=== PATIENT | male | born 1965 | race Caucasian/White ===

== ENCOUNTER 2020-04-04 07:00 | Day surgery (SDC) | payer OTHER ==
[2020-04-01 10:25] VITALS: BMI 36.1
[2020-04-04 07:40] VITALS: BP 114/87; TEMP 96.6
--- NOTE | 2020-04-04 10:06 | CT ---
CT lumbar spine with contrast: (CT lumbar myelogram) 04/04/2020 HISTORY: 54-year-old male with postlaminectomy syndrome, low back pain. COMPARISON: None FINDINGS: Transitional level at lumbosacral junction. For the purposes of this report, the first nonrib-bearing lumbar-type vertebra will be designated as L1. The transitional level at the lumbosacral junction will be considered to be L5 with bilaterally symmetrically dysplastic, large transverse processes everett t are completely fused with the bilateral sacral alae. Vertebral body heights are maintained. No scoliosis. There are bilateral pedicle screws with interlocking rods at L2, L3, L4, and L5. No eviden ce of loosening or malpositioning of hardware. Midline laminectomy defect contiguously from L2 through L4-5. Ankylosis of bilateral facet joints at L2-3, L3-4, and L5-S1, but not L4-5. L5-S1 facet joints are hypoplastic. L5-S1 disc space is hypoplastic. Moderate disc space narrowing at L4-5 with endplate irregularity. The rest of the disc spaces are maintained. Conus medullaris terminates a t T12-L1. T11-12: Mild right neural foraminal stenosis. Mild to moderate left neural foraminal stenosis. No cameron tral stenosis. T12-L1 small central and bilateral paracentral disc-osteophyte complex indents the ventral surface of thecal sac. Calcified/ossified ligamentum flavum thickening and mild degenerative facet hypertrophy indent bilateral dorsal aspect of thecal sac. Mild central spinal canal stenosis. No sign ificant right neural foraminal stenosis. Mild left neural foraminal stenosis. L1-2: Bony hypertrophy of right superior articular facet of L2 indents dorsal aspect of thecal sac. B kimberley hypertrophy of inferior articular facet of L1 indents the right lateral posterior aspect of thecal sac. There is probably an old left hemilaminotomy defect. Mild central spinal canal stenosis. No high-grade neural foraminal stenosis. L2-3: Wide midline decompressive laminectomy defect. Generous caliber of thecal sac in AP dimension. Moderate right neural foraminal stenosis. Mild to moderate left neural foraminal stenosis. L3-4: Severe bilateral facet DJD results in grade 1 anterolisthesis of L3 on L4. However, bilateral f acet joints are ankylosed. Midline laminectomy defect. Generous caliber of thecal sac. Moderate bilateral neural foraminal stenosis. L4-5: Retrolisthesis of L4 on L5. Focal central and bilateral paracentral disc-osteophyte complex ind ents the ventral aspect of thecal sac. Wide midline laminectomy defect. Mild central spinal canal stenosis. At least moderate bilateral neural foraminal stenosis. L5-S1: No central or significant neural foraminal stenosis. IMPRESSION: 1.) Lumbosacral transitional vertebra type IIIB. 2) bilateral pedicle screws L2 through L5, and decompressive midline laminectomy from L2 through L5-S 1. 3) no high-grade central spinal canal stenosis at any level. 4) the L2-3, L3-4, and L5-S1 facet joints are ankylosed, but the L4-5 facet joints is not. 5) bilateral high-grade facet osteoarthrosis and moderate degenerative disc disease at L4-5
--- NOTE | 2020-04-04 13:25 | RAD ---
MYELOGRAM LUMBAR: DATE: 04/04/2020 HISTORY: 54-year-old male with low back pain. Postlaminectomy syndrome. TECHNIQUE: Signed informed consent obtained. Patient placed prone on fluoroscopy table. Skin of lower back prepa red and draped in usual sterile fashion. 25-gauge needle used to apply buffered lidocaine superficially and deeply. Level selected:L2-3. Approach:midline. 22-gauge spinal needle advanced into spinal canal under brief, intermittent fluoroscopy. Upon return of clear CSF, 10 mL Isovue [id number] media was injected into the intrathecal space. Spinal needle was removed. Patient tolerated procedure well. No complications. Total fluoroscopy time:0.6 minutes. Dose area product:152.2 uGy*m^2. FINDINGS: Transitional level at lumbosacral junction. Bilateral pedicle screws and midline laminectomy defects at multiple levels. Fluoroscopic spot image demonstrates contrast injection into the thecal sac with good contrast opacification of thecal sac contents. IMPRESSION: 1. Postsurgical changes throughout multiple levels. 2. See separate report of subsequent CT lumbar myelogram.
[2020-04-04] MEDS ORDERED: Iopamidol-M 200 41% 20 ML VIAL ONE (15:49)
== END 2020-04-04 10:00 | disposition home or self-care (01) ==
LOC: RAD 07:00
PROVIDERS: ATTEND Specialist
PROC: B02B1ZZ Computerized Tomography (CT Scan) of Spinal Cord using Low Osmolar Contrast (ICD-10-PCS; principal; 2020-04-04)
DX: M96.1 Postlaminectomy syndrome, not elsewhere classified (principal); I10 Essential (primary) hypertension; E78.5 Hyperlipidemia, unspecified; F41.9 Anxiety disorder, unspecified; R73.03 Prediabetes; M70.62 Trochanteric bursitis, left hip; M70.61 Trochanteric bursitis, right hip; M46.1 Sacroiliitis, not elsewhere classified; K21.9 Gastro-esophageal reflux disease without esophagitis; Z79.899 Other long term (current) drug therapy
CPT/HCPCS: 62304; 72132; Q9966